=== PATIENT | female | born 1985 | race Asian ===

== ENCOUNTER 2023-02-09 01:15 | Inpatient (IN) | payer BC, OTHER ==
[2023-02-09] MEDS ORDERED: ELECTROLYTE-148 SOLN 1,000 ML IV SCH ×2 (01:45→08:15)
[2023-02-09 02:29] VITALS: BMI 29.4
[2023-02-09] MEDS ORDERED: AMPICILLIN SODIUM 2 GM VIAL ONE (02:38)
[2023-02-09] MEDS ORDERED: AMPICILLIN - 2 GM in SODIUM CHLORIDE 100 ML IVPB ONE (02:45)
[2023-02-09 03:13] LABS: BASO % 0.1 % (0-2.0); EOS % 2.1 % (0-4.5); HEMATOCRIT 37.7 % (32.4-45.2); HEMOGLOBIN 12.8 GM/dL (10.7-15.3); LYMPH % 15.5 % (8-40); MCH 28.3 pg (25.7-33.7); MCHC 33.8 g/dl (32.0-36.0); MEAN CELL VOLUME 83.6 fl (80-96); MEAN PLT VOLUME 7.7 fl (7.5-11.1); MONO % 9.1 % (3.8-10.2); NEUT % 73.2 % (42.8-82.8); PLATELET COUNT 217 10^3/uL (134-434); RBC 4.51 M/mm3 (3.60-5.2); RDW 13.7 % (11.6-15.6); WHITE BLOOD COUNT 14.5 K/mm3 (4.0-10.0)
[2023-02-09 03:23] LABS: INR 1.25 (0.83-1.09); PROTHROMBIN TIME (PATIENT) 14.5 SEC (9.7-13.0)
[2023-02-09 03:26] LABS: ACTIVATED PTT 29.9 SECONDS (25.2-36.5)
[2023-02-09 03:28] LABS: POTASSIUM 3.9 mmol/L (3.5-5.1)
[2023-02-09 03:30] LABS: CALCIUM 9.3 mg/dL (8.5-10.1)
[2023-02-09 03:34] LABS: CREATININE 0.5 mg/dL (0.55-1.3)
[2023-02-09] MEDS ORDERED: AMPICILLIN SODIUM 1 GM VIAL ONE ×4 (06:09→17:59)
[2023-02-09] MEDS ORDERED: AMPICILLIN - 1 GM in SODIUM CHLORIDE 100 ML IVPB SCH (06:45)
[2023-02-09] MEDS ORDERED: OXYTOCIN 30 UNITS in 0.9% NS 30 UNIT/500 ML INFUS.BAG IVPB ONE (07:58)
[2023-02-09] MEDS ORDERED: OXYTOCIN 30 UNITS in 0.9% NS 30 UNIT/500 ML INFUS.BAG IVPB SCH (08:15)
[2023-02-09] MEDS: AMPICILLIN - 1 GM in SODIUM CHLORIDE 100 ML IVPB SCH ×3 (10:00→18:02)
[2023-02-09] MEDS ORDERED: FENTANYL/BUPIVACAINE/NS/PF - PCEA - 50 ML DISP.SYRIN EP ONE (12:14)
[2023-02-09] MEDS ORDERED: NALOXONE HCL 0.4 MG/ML VIAL IVPUSH PRN (13:48)
[2023-02-09] MEDS ORDERED: FENTANYL/BUPIVACAINE/NS/PF - PCEA - 50 ML DISP.SYRIN EP SCH (14:00)
[2023-02-09] MEDS ORDERED: OXYTOCIN 20 UNITS in 0.9% NS 20 UNIT/1,000 ML INFUS.BAG IV ONE ×2 (16:08→16:18)
[2023-02-09] MEDS ORDERED: LIDOCAINE HCL 1% PRESERVATIVE FREE - 30ML VIAL ONE (16:18)
[2023-02-09] MEDS ORDERED: ACETAMINOPHEN 325 MG TABLET (FP) PO PRN (18:38)
[2023-02-09] MEDS ORDERED: BENZOCAINE 28 GM HEMORRHOIDAL OINTMENT TP PRN (18:38)
[2023-02-09] MEDS ORDERED: oxyCODONE HCL 5 MG TABLET PO PRN (18:38)
[2023-02-09] MEDS ORDERED: WITCH HAZEL 50% (TUCKS) 40 PAD/JAR PAD TP PRN (18:38)
[2023-02-09] MEDS ORDERED: BISACODYL 10 MG SUPP.RECT RC PRN (18:38)
[2023-02-09 18:42] LABS: CORD BASE EXCESS -3.7 mmol/L (0-2); CORD PCO2 53.3 mmHg (30-78); CORD pH 7.272 (7.14-7.44)
[2023-02-09] MEDS ORDERED: OXYTOCIN 20 UNITS in 0.9% NS 20 UNIT/1,000 ML INFUS.BAG IV SCH (18:45)
[2023-02-09 18:46] LABS: CORD BASE EXCESS -4.6 mmol/L (0-2); CORD HCO3 20.2 mmHg (20-29); CORD PCO2 37.2 mmHg (30-78); CORD pH 7.353 (7.14-7.44)
[2023-02-09 19:39] VITALS: RESP 18
[2023-02-09] MEDS: IBUPROFEN 600 MG TABLET (FP) PO PRN (20:24)
[2023-02-09] MEDS: BENZOCAINE 20% 57 GM BOTTLE TP PRN (21:31)
[2023-02-09] MEDS: DOCUSATE SODIUM 100 MG CAPSULE (FP) PO SCH (21:31)
[2023-02-09] MEDS: METHYLERGONOVINE MALEATE 0.2 MG/1 ML AMP IM PRN (21:39)
[2023-02-10] MEDS: METHYLERGONOVINE MALEATE 0.2 MG/1 ML AMP IM PRN (01:39)
[2023-02-10 06:44] LABS: EOS % 0.4 % (0-4.5); HEMATOCRIT 29.7 % (32.4-45.2); HEMOGLOBIN 10.5 GM/dL (10.7-15.3); LYMPH % 9.8 % (8-40); MCH 29.5 pg (25.7-33.7); MCHC 35.5 g/dl (32.0-36.0); MEAN CELL VOLUME 83.3 fl (80-96); MEAN PLT VOLUME 8.3 fl (7.5-11.1); MONO % 8.3 % (3.8-10.2); NEUT % 81.5 % (42.8-82.8); PLATELET COUNT 200 10^3/uL (134-434); RBC 3.57 M/mm3 (3.60-5.2); RDW 13.5 % (11.6-15.6); WHITE BLOOD COUNT 16.8 K/mm3 (4.0-10.0)
[2023-02-10 08:47] LABS: POC NITRAZINE POS
[2023-02-10] MEDS: DOCUSATE SODIUM 100 MG CAPSULE (FP) PO SCH ×2 (09:17→21:15)
[2023-02-10] MEDS: IBUPROFEN 600 MG TABLET (FP) PO PRN (09:17)
[2023-02-10] MEDS: PRENATAL VITAMINS W/ FOLIC ACID TABLET (FP) PO SCH (09:17)
[2023-02-10] MEDS ORDERED: SENNOSIDES/DOCUSATE COMBO (SENNA PLUS) TABLET (UD) PO PRN (22:00)
[2023-02-11] MEDS: BENZOCAINE 20% 57 GM BOTTLE TP PRN (09:43)
[2023-02-11] MEDS: PRENATAL VITAMINS W/ FOLIC ACID TABLET (FP) PO SCH (09:43)
[2023-02-11 10:03] VITALS: BP 106/60; PULSE 98; TEMP 97.7
[2023-02-11] MEDS: DOCUSATE SODIUM 100 MG CAPSULE (FP) PO SCH (10:05)
== END 2023-02-11 12:45 | disposition home or self-care (01) | DRG 807 ==
LOC: JLDR 01:15 → J3W 20:11
PROVIDERS: ADMIT Obstetrics & Gynecology; ATTEND Obstetrics & Gynecology
PROC: 10D07Z6 Extraction of Products of Conception, Vacuum, Via Natural or Artificial Opening (ICD-10-PCS; principal; 2023-02-09)
PROC: 0KQM0ZZ Repair Perineum Muscle, Open Approach (ICD-10-PCS; 2023-02-09)
DX: O75.81 Maternal exhaustion complicating labor and delivery (principal); Z37.0 Single live birth; O99.824 Streptococcus B carrier state complicating childbirth; O70.1 Second degree perineal laceration during delivery; O42.92 Full-term premature rupture of membranes, unspecified as to length of time between rupture and onset of labor; Z3A.38 38 weeks gestation of pregnancy; O99.283 Endocrine, nutritional and metabolic diseases complicating pregnancy, third trimester; E28.2 Polycystic ovarian syndrome; O99.891 Other specified diseases and conditions complicating pregnancy; R73.03 Prediabetes
CPT/HCPCS: 36415; 36600; 80048; 82803; 83986-QW; 85025; 85610; 85730; 86780; 86850; 86900; 86901; C9803-CS; U0003; U0005